=== PATIENT | female | born 1995 | race Hispanic/Latino ===

== ENCOUNTER 2016-11-24 10:31 | Emergency (ER) | payer SELFPAY ==
[~2016-11-24] VITALS: Ht 157.5 cm; Wt 86.5 kg
[2016-11-24 11:41] LABS: ADD MIUA? YES; BILIRUBIN NEGATIVE; BLOOD NEGATIVE; COLOR YELLOW ((YELLOW)); GLUCOSE (STRIP) NEGATIVE; KETONES NEGATIVE; LEUKOCYTES NEGATIVE; NITRITE NEGATIVE; PROTEIN (STRIP) 30; SPECIFIC GRAVITY 1.021 (1.000-1.030); UROBILINOGEN 0.2 MG/DL (0.2-1.0)
[2016-11-24 11:46] LABS: BACTERIA RARE /HPF; EPITHELIAL CELLS 1+ /HPF; MUCUS TRACE /LPF; RED BLOOD CELLS 0-5 /HPF (0-5); WHITE BLOOD CELLS 0-5 /HPF (0-5)
[2016-11-24 12:29] LABS: HEMATOCRIT 40.9 % (36.0-46.0); MCH 29.2 PG (29.0-34.0); MCV 88.3 FL (83-99); MEAN PLAT.VOLUME 10.6 uM^3 (9.5-12.4); PLATELET COUNT 296 K/uL (156-360); RBC DIS.WIDTH-CV 12.5 % (11.8-14.6); RBC DIS.WIDTH-SD 40.5 % (39-53); RED BLOOD COUNT 4.63 M/uL (3.80-5.20); WHITE BLOOD COUNT 7.6 K/uL (4.1-10.2)
[2016-11-24 12:47] LABS: CHLORIDE 106 mEq/L (99-109); POTASSIUM 4.3 mEq/L (3.7-5.4); SODIUM 139 mEq/L (136-147)
[2016-11-24 12:49] LABS: GLUCOSE 88 mg/dL (70-99)
[2016-11-24 12:50] LABS: ANION GAP 7 MEQ/L (2-14)
[2016-11-24 12:51] LABS: TOTAL BILIRUBIN 0.2 mg/dL (0.0-1.0)
[2016-11-24 12:52] LABS: ALKALINE PHOSPHATASE 76 IU/L (3-129)
[2016-11-24 12:53] LABS: GFR ESTIMATE (CALCULATED) > 59 mL/min/
[2016-11-24 12:54] LABS: UREA NITROGEN (BUN) 8 mg/dL (9-23)
[2016-11-24 12:56] LABS: LIPASE 27 U/L (1.0-51.0)
[2016-11-24 13:05] LABS: QUANTITATIVE HCG < 4.0 MIU/ML
[2016-11-24 13:35] VITALS: BP 117/79
[2016-11-24] MEDS ORDERED: TYLENOL EXTRA500 MG PO (13:46)
== END 2016-11-24 13:35 | disposition home or self-care (01) ==
LOC: EME 10:31
PROVIDERS: Physician Assistant
DX: N92.6 Irregular menstruation, unspecified (principal); N89.8 Other specified noninflammatory disorders of vagina; R10.9 Unspecified abdominal pain; Z87.891 Personal history of nicotine dependence
CPT/HCPCS: 76856; 80053; 81003; 83690; 84702; 85027; 99281; 99284